=== PATIENT | female | born 1990 | race Hispanic/Latino ===

== ENCOUNTER 2021-10-18 00:19 | Emergency (ER) | payer OTHER ==
[2021-10-18 00:39] VITALS: BP 113/69
[2021-10-18 00:45] VITALS: BP 114/69
[2021-10-18 01:00] VITALS: BP 118/80
[2021-10-18 01:15] VITALS: BP 112/65
[2021-10-18 01:27] VITALS: BP 114/69
== END 2021-10-18 01:27 | disposition home or self-care (01) | DRG 605 ==
LOC: ED 00:19
PROC: 0HQLXZZ Repair Left Lower Leg Skin, External Approach (ICD-10-PCS; principal; 2021-10-18)
DX: S81.012A Laceration without foreign body, left knee, initial encounter (principal); W18.30XA Fall on same level, unspecified, initial encounter; Y92.831 Amusement park as the place of occurrence of the external cause